=== PATIENT | male | born 1975 | race Caucasian/White ===

== ENCOUNTER 2020-12-24 13:29 | Emergency (ER) | payer OTHER ==
[2020-12-24 15:38] LABS: BASOPHIL 0.3 % (0-2); EOSINOPHIL 2.4 % (0-5); HCT 46.4 % (42.0-52.0); LYMPHOCYTE 36.7 % (15-48); MCHC 34.5 g/dL (32.0-36.0); MCV 95.7 fL (78.0-100.0); MONOCYTE 6.2 % (0-12); MPV 10.3 fL (6.0-9.5); NEUTROPHIL 54.2 % (41-80); NRBC 0; PLT 234 K/uL (150-400); RBC 4.85 M/uL (4.70-6.00); RDW 13.2 % (11.5-14.0); WBC 6.6 K/uL (4.0-10.5)
[2020-12-24 15:57] LABS: ALBUMIN 3.5 g/dL (3.4-5.0); BILIRUBIN - TOTAL 0.5 mg/dL (0.2-1.0); BUN/CREAT RATIO (CALC) 16.9 RATIO; CREATININE 0.89 mg/dL (0.67-1.17); GLOBULIN (CALCULATION) 3.6 g/dL; POTASSIUM 4.1 mmol/L (3.5-5.1); TOTAL PROTEIN 7.1 g/dL (6.4-8.2)
[2020-12-24] MEDS ORDERED: BACTRIM DS TAB1 EACH PO (17:23)
[2020-12-24] MEDS ORDERED: KEFLEX250 MG PO (17:23)
== END 2020-12-24 17:39 | disposition home or self-care (01) ==
LOC: FER 13:29
PROVIDERS: Physician Assistant
DX: L03.114 Cellulitis of left upper limb (principal); F17.200 Nicotine dependence, unspecified, uncomplicated; Z88.0 Allergy status to penicillin
CPT/HCPCS: 36415; 80053; 85025; 93971